=== PATIENT | male | born 1940 | race Native Hawaiian/Other Pacific Islander ===

== ENCOUNTER 2020-12-07 08:11 | Outpatient (CLI) | payer OTHER ==
[~2020-12-07] VITALS: Ht 152.4 cm; Wt 84.4 kg
== END 2020-12-07 19:34 | disposition home or self-care (01) ==
LOC: NM 08:11 → EDBD 08:11 → NM 19:34
PROVIDERS: ATTEND Nurse Practitioner Adult Health
DX: I25.10 Atherosclerotic heart disease of native coronary artery without angina pectoris (principal)
CPT/HCPCS: A9500; J2785

== ENCOUNTER 2022-01-15 09:16 | Outpatient (CLI) | payer OTHER | END 2022-01-15 21:00 | disposition home or self-care (01) | LOC: US 09:16 | PROVIDERS: ATTEND Nurse Practitioner Adult Health | DX: I25.10 Atherosclerotic heart disease of native coronary artery without angina pectoris (principal); I34.0 Nonrheumatic mitral (valve) insufficiency; I35.0 Nonrheumatic aortic (valve) stenosis; I99.8 Other disorder of circulatory system; R00.2 Palpitations; I65.23 Occlusion and stenosis of bilateral carotid arteries; R06.09 Other forms of dyspnea ==

== ENCOUNTER 2022-01-22 08:41 | Outpatient (CLI) | payer OTHER ==
[~2022-01-22] VITALS: Ht 175.3 cm; Wt 83.5 kg
== END 2022-01-22 17:00 | disposition home or self-care (01) ==
LOC: NM 08:41
PROVIDERS: ATTEND Nurse Practitioner Adult Health
DX: I25.10 Atherosclerotic heart disease of native coronary artery without angina pectoris (principal); I48.91 Unspecified atrial fibrillation; R06.00 Dyspnea, unspecified
CPT/HCPCS: A9500; J2785